=== PATIENT | female | born 1960 | race Caucasian/White ===

== ENCOUNTER → 2019-02-27 | Outpatient (REF) | payer OTHER ==
[~2019-02-27] MED LIST: ASPI-715 PO; EZET1TAB53 PO; FISH1CAP15 PO; HCTZ25 PO; IBU800 PO; LEVO50TA89 PO; LISI-349 PO; METF-452 PO; METXR500 PO; MV-M1TAB2 PO; PER PO; PIOG15TA14 PO; SITA100T9 PO; SITA1TBM4 PO
== END ==
LOC: ZZSENDIN 17:03
PROVIDERS: ATTEND Urology
DX: R31.1 Benign essential microscopic hematuria (principal); N20.0 Calculus of kidney
CPT/HCPCS: 81001; 87088

== ENCOUNTER → 2019-03-14 | Outpatient (CLI) | payer OTHER ==
--- NOTE | 2019-03-14 15:20 | RADIOLOGY IMAGING REPORT ---
[place] [facility] [place] Marla Vidales : 1960 MR: [id number] V: [id number] EXAM DATE: ORDERING PHYSICIAN: ADAIR BUTCHER TECHNOLOGIST: Location: [facility] Patient: Marla Vidales : 1960 Visit/Account:[id number] Date of Sevice: 03/14/2019 CT ABDOMEN PELVIS W/O CON Indication: Left-sided flank pain. COMPARISON STUDIES: None.. TECHNIQUE: Noncontrast CT lung bases to the pubic symphysis obtained. One of the following dose optimization techniques was utilized in the performance of this exam: autom ated exposure control; adjustment of the mA and/or kV according to the patient's size; or use of an i terative reconstruction technique. Specific details can be referenced in the facility's radiology CT exam operational policy. FINDINGS: Liver / gallbladder: The liver demonstrates normal attenuation. Gallbladder is unremarkable. Pancreas: Pancreas is unremarkable. Spleen: Normal. Adrenal glands: Normal. Kidneys: Large calculi are seen in the lower pole and the pelvis of the left kidney. Severe left-si ded hydronephrosis seen. Left-sided hydroureter is noted. There is no evidence of left ureteral heidi culus. There is mild right hydroureter. There is no evidence of right kidney or ureteral calculus. Pelvis: The urinary bladder is normal. Bowel: Diverticular changes are seen throughout the colon. There is no pericolonic fat stranding or inflammation. Small bowel and stomach are normal. Vessels: Negative Musculoskeletal / Body wall: There are no lytic or blastic bone lesions. Soft tissues are normal. Lymph node assessment: Negative Lower chest: Negative IMPRESSION: 1. Left nephrolithiasis. 2. Severe left hydronephrosis. There is no evidence of obstructing left ureteral calculus. 2. Mild right hydroureter. 4. Colon diverticulosis. No evidence of diverticulitis. Report Dictated By: Micah De La O at 03/14/2019 3:11 PM Report E-Signed By: Micah De La O at 03/14/2019 3:15 PM WSN:[email or web address]
== END ==
LOC: CT 00:45
PROVIDERS: ATTEND Urology
DX: N20.0 Calculus of kidney (principal); N13.30 Unspecified hydronephrosis; K57.90 Diverticulosis of intestine, part unspecified, without perforation or abscess without bleeding
CPT/HCPCS: 74176

== ENCOUNTER → 2019-03-23 | Outpatient (CLI) | payer OTHER ==
[2019-03-23 09:34] LABS: PLATELET COUNT, AUTOMATED 230 K/uL (150-450)
[2019-03-23 09:55] LABS: LDL CHOLESTEROL 82 mg/dl
== END ==
LOC: LAB 09:00
PROVIDERS: ATTEND Nurse Practitioner Family
DX: R73.01 Impaired fasting glucose (principal); R53.81 Other malaise; E87.8 Other disorders of electrolyte and fluid balance, not elsewhere classified; E78.00 Pure hypercholesterolemia, unspecified; E55.9 Vitamin D deficiency, unspecified
CPT/HCPCS: 36415; 82040; 82247; 82306; 82310; 82374; 82435; 82465; 82565; 82607; 82947; 83036; 83718; 84075; 84132; 84155; 84295; 84443; 84450; 84460; 84478; 84520; 85025

== ENCOUNTER 2019-04-05 00:51 | Day surgery (SDC) | payer OTHER ==
[2019-04-02 11:48] LABS: PLATELET COUNT, AUTOMATED 232 K/uL (150-450)
--- NOTE | 2019-04-04 10:08 | HISTORY AND PHYSICAL ---
DATE OF ADMISSION: April 05, 2019 CHIEF COMPLAINT Left kidney stones. HISTORY OF PRESENT ILLNESS Patient is a 58-year old white female with a long history of kidney stones who recently presented to the Urology Clinic in February of this year for evaluation. At that time, she was found to have some microscopic hematuria. She stated the last CT scan she had performed was in 2013. I reviewed these films, which revealed a 3 x 1 cm partial staghorn calculus in the renal pelvis as well as an 8 mm stone in the lower pole. At this point, the CT scan was repeated. The stones appeared to be not significantly increased. However, she did have some new lower pole scarring on the left kidney as well as dilation of the renal pelvis. At this point, options were discussed with percutaneous nephrolithotomy being the most efficacious treatment. However, it was one of the more invasive and would require at least overnight hospitalization. Patient desired a less invasive treatment. Therefore, ESWL with ureteroscopy was discussed. She was informed that given the overall stone burden she would likely require two to three treatments to be stone-free and this is really depending on the composition of the stone and its responding to treatment. Also discussed ureteral stent placement at time of initial treatment. Therefore, she elected to undergo stent placement followed by extracorporeal shock wave lithotripsy with reevaluation of procedure in a few weeks to come up with a definitive plan. PAST MEDICAL HISTORY * Hypothyroidism. * Hypercholesterolemia. * Hypertension. * Diverticulosis. * Pancreatitis. * Type 2 diabetes. * Fatty liver. * Mild eosinophilia, diagnosed 2013. PAST SURGICAL HISTORY * Bilateral cataracts. * Hysterectomy. * AP repair with transobturator sling, 2011. * EGD. * Bilateral ESWL, 1994. CURRENT MEDICATIONS * Aspirin. * Lipitor. * Multivitamins. * Trulicity. * Hydrochlorothiazide * Levothyroxine. * Lisinopril. * Metformin. ALLERGIES Penicillin. SOCIAL HISTORY Patient lives in [place]. She is . Denies illicit drug use. REVIEW OF SYSTEMS Patient denies nausea, vomiting, fever, chills, chest pain, productive cough, gross hematuria, change in weight, extremity swelling, change in bowel habits or chronic headaches. PHYSICAL EXAMINATION GENERAL: Patient is a well-developed, well-nourished white female in no acute distress. HEENT: Normocephalic, atraumatic. CHEST: Clear to auscultation bilaterally. CARDIOVASCULAR: Regular rate and rhythm. ABDOMEN: Soft, nontender. No masses palpated. : Deferred to OR. EXTREMITIES: No clubbing, cyanosis or edema. NEUROLOGIC: Nonfocal. ASSESSMENT A 58-year old white female with a long history of kidney stones now with partial staghorn calculus on the left renal pelvis and a second stone in the left lower pole with associated parenchymal thinning as well as some mild dilation of the collecting system. PLAN We will perform anesthetic cystoscopy stent placement followed by extracorporeal shock wave lithotripsy. MTDD
[~2019-04-05] VITALS: Ht 157.5 cm; Wt 66.2 kg
[~2019-04-05 00:51] MED LIST changes: +ATOR10TA24 PO; +CHOL10005 PO; +DULA1.5P INJ; +LISI-362 PO
[2019-04-05 08:44] VITALS: BP 135/84
--- NOTE | 2019-04-05 09:02 | EKG ---
FACILITY: [facility] [place] PATIENT NAME: AMEENA INGRAM : [id number] MR: [id number] V: [id number] EXAM DATE: ORDERING PHYSICIAN: ADAIR BUTCHER TECHNOLOGIST: JOSE Test Reason : PRE OP Blood Pressure : / mmHG Vent. Rate : 068 BPM Atrial Rate : 068 BPM P-R Int : 134 ms QRS Dur : 096 ms QT Int : 424 ms P-R-T Axes : 058 061 060 degrees QTc Int : 450 ms Normal sinus rhythm Normal ECG No previous ECGs available Confirmed by KEENAN JOLLEY ([id number]) on 04/05/2019 6:18:53 PM Referred By: HADLEY Confirmed By:KEENAN JOLLEY
[2019-04-05] MEDS ORDERED: NORMOSOL R SOLN(*) 1000 ML BAG 1,000 ML IV PRN (09:55)
[2019-04-05] MEDS ORDERED: LEVOFLOXACIN/D5W*500 MG/100 ML 100 ML IVPB ONE (09:55)
[2019-04-05] MEDS ORDERED: FAMOTIDINE 20 MG TAB PO ONE (09:55)
[2019-04-05] MEDS ORDERED: MIDAZOLAM 2 MG/2 ML VIAL IVP PRN (09:55)
[2019-04-05] MEDS ORDERED: LIDOCAINE/SOD BICARB 8.4% SYR ID ONE (09:55)
--- NOTE | 2019-04-05 10:14 | RADIOLOGY IMAGING REPORT ---
[place] [facility] [place] Marla Vidales : 1960 MR: [id number] V: [id number] EXAM DATE: [id number] ORDERING PHYSICIAN: ADAIR BUTCHER TECHNOLOGIST: Location: [facility] Patient: Marla Vidales : 1960 Visit/Account:[id number] Date of Sevice: 04/05/2019 Exam type: KUB SINGLE VIEW ABDOMEN History: Pre-op, history of kidney stones Comparison: CT abdomen pelvis March 14, 2019. Findings: Numerous calculi project over the mid and lower pole the left kidney. The appearance is of a partial staghorn calculus no calculi identified over the right kidney. The bowel gas pattern is nonspecific other than incidental note of colonic diverticular disease. No evidence of organomegaly. IMPRESSIO N: 1. Left-sided nephrolithiasis Report Dictated By: Taylor Edmond MD at 04/05/2019 10:07 AM Report E-Signed By: Taylor Edmond MD at 04/05/2019 10:09 AM WSN:[email or web address]
[2019-04-05] MEDS ORDERED: PROPOFOL EMUL(*) 10MG/ML 20 ML 20 ML ONE (11:42)
[2019-04-05] MEDS ORDERED: fentaNYL CITR 100 MCG/2 ML AMP ONE ×2 (12:37→14:12)
[2019-04-05] MEDS ORDERED: KETOROLAC 30 MG/ML VIAL ONE (12:45)
[2019-04-05] MEDS ORDERED: LEVO-85 PO (13:05)
[2019-04-05] MEDS ORDERED: HYDR-653 PO ×2 (13:06→14:50)
[2019-04-05] MEDS ORDERED: IBUP-297 PO (13:08)
[2019-04-05] MEDS ORDERED: OXYB10TA16 PO ×2 (13:16→14:49)
--- NOTE | 2019-04-05 13:40 | OPERATIVE REPORT 1 ---
EVENT DATE: April 05, 2019 SURGEON: Roni Yanez MD ANESTHESIOLOGIST: Lane Bradley MD ANESTHESIA: General. PREOPERATIVE DIAGNOSIS Left renal calculi. POSTOPERATIVE DIAGNOSIS Left renal calculi. PROCEDURE PERFORMED 1. Cystoscopy. 2. Left double-J ureteral stent placement. 3. Left extracorporeal shock wave lithotripsy. ESTIMATED BLOOD LOSS Minimal. IV FLUIDS Crystalloids. DRAINS 6-Argentine x 24 cm Contour stent on left. COMPLICATIONS None. CONDITION The patient was taken to recovery room awake and in stable condition. STATEMENT OF MEDICAL NECESSITY The patient is a 58-year old white female with a long history of kidney stones who recently presented to Urology Clinic for evaluation of stones. She had a CT scan performed in 2013, which showed a partial staghorn calculus in the left side as well as a smaller lower pole stone. I repeated the CT scan, which showed no significant change in this partial staghorn calculus involving the renal pelvis in partial lower pole. However, she did have some interval development of some mild dilation of the collecting system with some thinning of the parenchyma in the left lower pole. Options were discussed and she has elected to undergo stent placement followed by extracorporeal shock wave lithotripsy. She understands that given the size of the stones this will likely take more than one treatment to obtain a stone-free status. DESCRIPTION OF OPERATION PERFORMED The patient was brought to the operating room. After general anesthetic was obtained, she was placed in the dorsal lithotomy position on the lithotripsy table and after sterile prep and drape anesthetic cystoscopy was performed. She was noted to have a normal appearing urethra. She did have a grade 3 cystocele. The ureteral orifices were on their respective hemitrigone. There were no bladder lesions or tumors identified. At this point, the left ureteral orifice was cannulated with a 6-Argentine open-end access catheter, which was then used to placed a 0.35 double floppy wire. The access catheter was removed. A 6-Argentine x 24 cm Contour stent was then placed over the wire. The wire was removed. She was noted to have good curling in the renal pelvis by fluoroscopy and good curling of the bladder by x-ray vision. The patient's bladder was drained through the cystoscopic sheath. She was then taken down from dorsal lithotomy position and placed supine with compression points padded and lithotripsy was performed. Fluoroscopic imaging was obtained on the medial aspect of the large stone in two planes. Treatment was then begun at a power setting of 2 and gradually increased to a power setting of 3.5 over the course of the first 300 shocks. A 3-minute pause was then performed and treatment resumed. Intermittent two-plane fluoroscopy was used to ensure the treatment had remained on the stone and stone fragment pile. The power was gradually increased to a power setting of 8 over the course of the first 1500 shocks. Fragmentation was first noted at approximately 800 shocks. Treatment was gradually moved more laterally inferior along the stone down to the lower pole 7 mm stone as well. She received a total of 3,000 shocks, at the conclusion of which no significant large fragments were remaining. The stone volume had appeared to disperse throughout the mid and lower pole calices. At this point, the patient was awakened in the operating room and taken to the recovery area in stable condition. PLAN Allow the patient to be discharged home today on Levaquin for 2 days, [place], Colace, Motrin, Ditropan XL and Pyridium. We will have her call the office in approximately one weeks' time to schedule a follow up return to the operating room in four to six weeks for followup ureteroscopy and/or lithotripsy as indicated. KIMBERLEE
[2019-04-05 14:20] VITALS: BP 139/84
[2019-04-05] MEDS ORDERED: LEVO500T83 PO (14:48)
[2019-04-05] MEDS ORDERED: PHEN200T32 PO (14:48)
[2019-04-05] MEDS ORDERED: DOCU-416 PO (14:49)
[2019-04-05] MEDS ORDERED: IBUP600T22 PO (14:50)
--- NOTE | 2019-04-05 15:40 | NUR ---
1420- PT. RECEIVED FROM THE PACU VIS STRETCHER WITH THE SIDERAILS UP. SBAR RECEIVED FROM SHAZIA VARELA. SEE ADMISSIONS ASSESSMENT. 1430- BROUGHT TO THE BEDSIDE AND PT. RESTING AND SIPPING ON WATER. 1450- PT. UP TO THE BATHROOM. 1500- PT. GETTING DRESSED. 1510- PT. IV TAKEN OUT AND PRESSURE DRESSING APPLIED. 1515- DISCHARGE INSTRUCTIONS GONE OVER WITH PT. . 1520- PT. ACCOMPANIED TO VEHICLE AMBULATORY BY MYSELF AND . SEE DISCHARGE ASSESSMENT.
== END 2019-04-05 14:20 | disposition home or self-care (01) ==
LOC: OR 00:51
PROVIDERS: ATTEND Urology
DX: N20.0 Calculus of kidney (principal); E11.9 Type 2 diabetes mellitus without complications; I10 Essential (primary) hypertension
CPT/HCPCS: 36415; 36416; 50590; 52332; 74018; 81001; 82948; 85025; 87088; 93005; C1769; C2617; J1885; J1956; J2250; J2704; J3010; 82040; 82247; 82310; 82374; 82435; 82565; 82947; 84075; 84132; 84155; 84295; 84450; 84460; 84520

== ENCOUNTER 2019-05-24 00:10 | Day surgery (SDC) | payer OTHER ==
--- NOTE | 2019-05-23 18:31 | HISTORY AND PHYSICAL ---
DATE OF ADMISSION: May 24, 2019 CHIEF COMPLAINT Kidney stones. HISTORY OF PRESENT ILLNESS Patient is a 58-year-old white female who was diagnosed with left kidney stones. She had a CT scan, which revealed a partial staghorn kidney stone in the left mid and lower poles. She originally underwent stent placement with extracorporeal shock wave lithotripsy on the 05 of April. She is now being returned to the operating room for planned followup ESWL and/or ureteroscopy as indicated. PAST MEDICAL HISTORY 1. Hypothyroidism. 2. Hypercholesterolemia. 3. Hypertension. 4. Diverticulosis. 5. History of pancreatitis. 6. Type 2 diabetes. 7. Fatty liver. 8. Eosinophilia diagnosed 2013. PAST SURGICAL HISTORY 1. Bilateral cataracts. 2. Hysterectomy. 3. Anterior/posterior repair with transobturator sling 2011. 4. EGD. 5. Bilateral extracorporeal shock wave lithotripsy 1994. 6. Left extracorporeal shock wave lithotripsy with double J stent placement April 05, 2019. CURRENT MEDICATIONS 1. Aspirin. 2. Lipitor. 3. Multivitamins. 4. Trulicity. 5. Hydrochlorothiazide. 6. Levothyroxine. 7. Lisinopril. 8. Metformin. ALLERGIES PENICILLIN. SOCIAL HISTORY Patient is , lives in [place]. REVIEW OF SYSTEMS Patient denies bleeding disorder, chest pain, productive cough, fever, chills, nausea, vomiting, or chronic headaches. PHYSICAL EXAMINATION GENERAL: Patient is a well-developed, well-nourished white female in no acute distress. HEENT: Normocephalic, atraumatic. CHEST: Clear to auscultation bilaterally. CARDIOVASCULAR: Regular rate and rhythm. ABDOMEN: Soft, nontender. No masses are palpated. GENITOURINARY: Deferred to the OR. EXTREMITIES: Without clubbing, cyanosis, or edema. NEUROLOGIC: Nonfocal. IMPRESSION AND PLAN A 58-year-old white female with partial staghorn stone in the left mid and lower poles, status post lithotripsy approximately six weeks ago, now for followup ureteroscopy and/or lithotripsy as indicated. [facility]
[~2019-05-24] VITALS: Ht 157.5 cm; Wt 64.0 kg
[~2019-05-24 00:10] MED LIST changes: +DOCU-416 PO; +HYDR-653 PO; +IBUP-297 PO; +IBUP600T22 PO; +LEVO-85 PO; +LEVO500T83 PO; +OXYB10TA16 PO; +PHEN200T32 PO
[2019-05-24] MEDS: NORMOSOL R SOLN(*) 1000 ML BAG 1,000 ML IV PRN ×2 (06:53→10:25)
[2019-05-24] MEDS ORDERED: APREPITANT 40 MG CAP PO ONE (07:00)
[2019-05-24 07:23] VITALS: BP 133/87
--- NOTE | 2019-05-24 07:51 | RADIOLOGY IMAGING REPORT ---
FACILITY: [facility] PATIENT NAME: Marla Vidales : 1960 MR: [id number] V: [id number] EXAM DATE: ORDERING PHYSICIAN: ADAIR BUTCHER TECHNOLOGIST: [facility] Patient: Marla Vidales : 1960 Visit/Account:[id number] Date of Sevice: 05/21/2019 KUB SINGLE VIEW ABDOMEN HISTORY: Stones. COMPARISON: 04/05/2019 and studies dating to 11/07/2009. FINDINGS: A single AP supine view of the abdomen was obtained. There is a left nephroureteral stent. The left renal calculi have been fragmented and project over th e mid to lower left kidney. No calculus along the stent. Right renal fossa is normal. There is a righ t pelvic phlebolith. Distribution of bowel gas is normal with bowel in all four quadrants as well as centrally. No dilated bowel loops. No free air. There is mild degenerative change of the hips. IMPRESSION: 1. Fragmentation of the left renal stones. Left nephroureteral stent is in place. Report Dictated By: Muriel Garrido at 05/24/2019 7:41 AM Report E-Signed By: Muriel Garrido at 05/24/2019 7:44 AM WSN:[id number]
[2019-05-24] MEDS ORDERED: LEVOFLOXACIN/D5W*500 MG/100 ML 100 ML IVPB ONE (07:55)
[2019-05-24] MEDS ORDERED: FAMOTIDINE 20 MG TAB PO ONE (07:55)
[2019-05-24] MEDS ORDERED: LIDOCAINE/SOD BICARB 8.4% SYR ID ONE (07:55)
[2019-05-24] MEDS ORDERED: fentaNYL CITR 100 MCG/2 ML AMP ONE ×2 (08:41→09:51)
[2019-05-24] MEDS ORDERED: LIDOCAINE MPF 1% 5 ML VIAL ONE (08:42)
[2019-05-24] MEDS ORDERED: PROPOFOL EMUL(*) 10MG/ML 20 ML 20 ML ONE (08:42)
[2019-05-24] MEDS: MIDAZOLAM 2 MG/2 ML VIAL IVP PRN ×2 (08:46→08:59)
[2019-05-24] MEDS ORDERED: SCOPOLAMINE 1.5 MG PATCH TD ONE (08:55)
[2019-05-24] MEDS ORDERED: DEXAMETHASONE SOD PHOS 10MG/ML ONE (08:59)
[2019-05-24] MEDS ORDERED: ONDANSETRON 4 MG/2 ML VIAL ONE (09:00)
[2019-05-24] MEDS ORDERED: KETOROLAC 30 MG/ML VIAL ONE (09:50)
[2019-05-24] MEDS ORDERED: DOCU-416 PO (10:40)
[2019-05-24 10:53] VITALS: BP 104/67
--- NOTE | 2019-05-24 11:02 | OPERATIVE REPORT 1 ---
EVENT DATE: May 24, 2019 SURGEON: Roni Yanez MD ANESTHESIOLOGIST: Mike Hernandez MD ANESTHESIA: General. PREOPERATIVE DIAGNOSIS Left renal calculi with indwelling ureteral stent. POSTOPERATIVE DIAGNOSIS Left renal calculi with indwelling ureteral stent. PROCEDURE PERFORMED 1. Left extracorporeal shock wave lithotomy. 2. Cystoscopy with grasping and removal of the double-J stent. ESTIMATED BLOOD LOSS Minimal. IV FLUIDS Crystalloid. DRAINS None. COMPLICATIONS None. CONDITION The patient was taken to the recovery room awake and in stable condition. STATEMENT OF MEDICAL NECESSITY The patient is a 58-year-old white female with a long history of kidney stones who was noted to have a partial stag-horn calculus on the left side. She underwent stent placement with extracorporeal shock way lithotomy approximately 6 weeks ago and follow up KUB today has revealed good to excellent fragmentation of the stone with a few remaining stone fragment particles in the mid and lower pole calyces. She is now being brought to the operating room for planned follow up treatment with removal of her stent. DESCRIPTION OF PROCEDURE The patient was brought to the operating room. After general anesthetic was obtained, she was placed supine on the lithotripsy table. Her stone was visualized with 2-plane fluoroscopy and placing the cross-hairs. The stone fragments right around the curl of the stent were first treated. She received a total of 1500 shocks to this area to a maximum power setting of 8. To begin treatment, a 3 minute pause was performed after the first 300 shocks at a power setting of 3. After the first stone cluster around the curling stent was performed, the cross-hairs were moved to the mid pole cluster followed by a more lateral lower pole and then the most inferior portion. Each area received a total of 500 shocks. At the conclusion of the treatment, she received a total of 3000 shocks to the left kidney. At the conclusion, there were no significant stone fragment size remaining. Following treatment, she was placed in the dorsal lithotomy position, prepped and draped in sterile manner. Anesthetic cystoscopy was performed with the 21-Amharic rigid scope sheath and the 12-degree lens. The stent was seen emanating from the left ureteral orifice. It was grasped and gently removed intact. Her bladder was drained through the cystoscopic sheath. She was awakened in the operating room and taken to the recovery area in stable condition. The plan will be to allow the patient to be discharged home today. We will plan to see her in the office in 6 to 8 weeks with a follow up KUB. MOHAN
[2019-05-24 11:30] VITALS: BP 107/71
[2019-05-24 11:58] VITALS: BP 99/66
[2019-05-24 12:08] VITALS: BP 114/78
[2019-05-24 12:10] VITALS: BP 114/70
== END 2019-05-24 10:53 | disposition home or self-care (01) ==
LOC: OR 00:10
PROVIDERS: ATTEND Urology
DX: N20.0 Calculus of kidney (principal); E11.9 Type 2 diabetes mellitus without complications
CPT/HCPCS: 36415; 36416; 50590; 74018; 81001; 82948; 87088; J1100; J1885; J1956; J2001; J2250; J2405; J2704; J3010; J8501; 82310; 82374; 82435; 82565; 82947; 84132; 84295; 84520